=== PATIENT | female | born 1960 | race American Indian/Alaskan Native ===

== ENCOUNTER 2017-06-09 03:58 | Emergency (ER) | payer OTHER ==
[2017-06-09 05:13] LABS: Hematocrit 40.6 % (30.3-42.9); Hemoglobin 13.2 gm/dl (10.1-14.3); Mean Corpuscular HGB Conc 33 % (30-34); Mean Corpuscular Hemoglobin 30 pg (28-32); Mean Corpuscular Volume 92 fl (79-97); Platelet Count 301 K/mm3 (140-440); Red Blood Count 4.41 M/mm3 (3.65-5.03); Red Cell Distribution Width 15.9 % (13.2-15.2); White Blood Count 12.8 K/mm3 (4.5-11.0)
[2017-06-09 05:23] LABS: Anion Gap 21 mmol/L; BUN/Creatinine Ratio 18.75; Blood Urea Nitrogen 15 mg/dL (7-17); Calcium 9.4 mg/dL (8.4-10.2); Carbon Dioxide 21 mmol/L (22-30); Chloride 100.8 mmol/L (98-107); Glucose 110 mg/dL (65-100); Potassium 3.8 mmol/L (3.6-5.0); Sodium 139 mmol/L (137-145)
[2017-06-09] MEDS ORDERED: NITROSTAT SL ONE ×2 (05:32→06:42)
[2017-06-09] MEDS ORDERED: MORPHINE ONE (05:32)
[2017-06-09] MEDS ORDERED: ZOFRAN ONE (05:32)
[2017-06-09] MEDS ORDERED: ZOFRAN IV ONE ×2 (06:42→10:51)
[2017-06-09] MEDS ORDERED: MORPHINE IV ONE ×2 (06:42→10:51)
[2017-06-09 07:04] LABS: Anisocytosis 1+; Blastocytes % (Manual) 0 %; Diff Status Complete; Giant Platelets Rare
[2017-06-09] MEDS ORDERED: DILAUDID IV ONE (07:08)
[2017-06-09] MEDS ORDERED: APRESOLINE IV ONE (07:08)
[2017-06-09] MEDS ORDERED: NACL ONE (07:42)
[2017-06-09 07:53] LABS: Urine Drugs of Abuse Note Disclamer
[2017-06-09 08:32] LABS: Bilirubin,Urine NEG (Negative); Blood,Urine NEG (Negative); Ketones,Urine NEG (Negative); Leukocyte Esterase,Urine NEG (Negative); Mucus,Urine FEW /HPF; Nitrite,Urine NEG (Negative); Protein,Urine <15 mg/dL mg/dL (Negative); Urobilinogen,Urine < 2.0 mg/dL (<2.0); WBC,Urine < 1.0 /HPF (0.0-6.0)
--- NOTE | 2017-06-09 08:46 | Cat Scan Report ---
CT HEAD WITHOUT CONTRAST INDICATION: Headache. COMPARISON: None similar. FINDINGS: Noncontrast head CT demonstrates normal, symmetric ventricles and sulci without acute or recent infarct, hemorrhage, mass effect or midline shift. No abnormal extra-axial fluid collections. Posterior fossa structures and basilar cisterns are within normal limits. Symmetric eye globes. Clear paranasal sinuses and mastoid air cells. Intact calvarium. Normal overlying scalp soft tissues. Few radiopaque dental material incidentally noted. CONCLUSION: No acute intracranial CT abnormality, as described. Thank you for the opportunity to participate in this patient's care.
--- NOTE | 2017-06-09 08:53 | Cat Scan Report ---
CTA of the chest: Chest pain. Following IV contrast administration sections are obtained through the chest into the upper abdomen. Coronal and sagittal 2-D reformatted images with 3-D MIP image included. There is good opacification of the pulmonary arteries with no suspicious filling defects noted. The thoracic aorta is normal in size and contour. The opacified pulmonary changes show no filling defects. The central airways are patent. There is no hilar or mediastinal adenopathy appreciated. No pulmonary nodules, infiltrates, nor pleural findings. Sections carried into the upper abdomen demonstrates a partially visualized large right renal pelvis cyst and a 13 mm left renal cyst. Impressions: No evidence of pulmonary embolus or significant pulmonary finding.
--- NOTE | 2017-06-09 11:38 | Emergency Department Report ---
HPI - General Chief Complaint: Chest Pain Time Seen by Provider: 06/09/17 06:35 - HPI HPI: Chief complaint: Headache, chest pain 57-year-old -[place] female presents to the ED with headache, chest pain , neck pain. Patient denies any fever, chills, nausea or vomiting. Patient stated history of back surgery. She described the pain as sharp, 7 out of 10, without alleviating or exacerbating factors. Patient did not take any medication for her symptoms. ED Past Medical Hx - Past Medical History Previous Medical History?: Yes Hx Hypertension: Yes Additional medical history: Chronic back pain - Surgical History Additional Surgical History: L5/S1 FUSION. X 3. HYSTERECTOMY - Social History Smoking Status: Never Smoker - Medications Home Medications: Home Medications Medication Instructions Recorded Confirmed Last Taken Type Acetaminophen/Codeine [Tylenol #3] 1 tab PO Q6H PRN #15 tab 05/24/15 Unknown Rx Cyclobenzaprine [Flexeril 10 MG 10 mg PO TID PRN #15 tablet 05/24/15 Unknown Rx TAB] Ketorolac [Toradol] 10 mg PO Q6H PRN #20 tablet 06/09/17 Unknown Rx ED Review of Systems ROS: Stated complaint: CHEST PAIN Other details as noted in HPI Comment: All other systems reviewed and negative Cardiovascular: chest pain Neurological: headache Physical Exam - Physical Exam Vital Signs: Vital Signs 06/09/17 06/09/17 06/09/17 04:00 04:17 05:59 Temperature 97.8 F 98 F Pulse Rate 78 72 Respiratory 20 18 18 Rate Blood Pressure 195/103 161/110 Blood Pressure 170/103 [Right] O2 Sat by Pulse 100 100 Oximetry 06/09/17 06/09/17 06/09/17 07:18 07:36 08:34 Temperature 98.6 F Pulse Rate 94 H 84 Respiratory 14 16 Rate Blood Pressure 181/100 Blood Pressure 140/60 115/66 [Right] O2 Sat by Pulse 100 100 Oximetry 06/09/17 09:22 Temperature 98.1 F Pulse Rate 84 Respiratory 14 Rate Blood Pressure Blood Pressure 120/70 [Right] O2 Sat by Pulse 100 Oximetry Physical Exam: Gen. alert and oriented 3 in no distress Head atraumatic normocephalic Eyes PERR LA EOMI Chest regular rate and rhythm normal S1-S2 lungs clear bilaterally Abdomen soft nondistended Back no point tenderness paravertebral tenderness Neuro no focal deficit. Psych normal mood. ED Course Vital Signs 06/09/17 06/09/17 06/09/17 04:00 04:17 05:59 Temperature 97.8 F 98 F Pulse Rate 78 72 Respiratory 20 18 18 Rate Blood Pressure 195/103 161/110 Blood Pressure 170/103 [Right] O2 Sat by Pulse 100 100 Oximetry 06/09/17 06/09/17 06/09/17 07:18 07:36 08:34 Temperature 98.6 F Pulse Rate 94 H 84 Respiratory 14 16 Rate Blood Pressure 181/100 Blood Pressure 140/60 115/66 [Right] O2 Sat by Pulse 100 100 Oximetry 06/09/17 09:22 Temperature 98.1 F Pulse Rate 84 Respiratory 14 Rate Blood Pressure Blood Pressure 120/70 [Right] O2 Sat by Pulse 100 Oximetry ED Medical Decision Making - Lab Data Result diagrams: 06/09/17 04:49 06/09/17 04:49 Critical care attestation.: If time is entered above; I have spent that time in minutes in the direct care of this critically ill patient, excluding procedure time. ED Disposition Clinical Impression: Headache, Chest pain Disposition: DC-01 TO HOME OR SELFCARE Is pt being admited?: No Does the pt Need Aspirin: No Condition: Stable Instructions: Chest Pain (ED) Prescriptions: Ketorolac [Toradol] 10 mg PO Q6H PRN #20 tablet PRN Reason: Pain Referrals: RYAN DA SILVA MD [Primary Care Provider] - 3-5 Days
[2017-06-09] MEDS ORDERED: TORADOL ONE (11:51)
[2017-06-09] MEDS ORDERED: TORADOL IV ONE (11:52)
[2017-06-09 12:08] VITALS: BP 116/59
== END 2017-06-09 12:00 | disposition home or self-care (01) ==
LOC: ED 03:58
DX: R07.9 Chest pain, unspecified (principal); R51 Headache; I10 Essential (primary) hypertension; G89.29 Other chronic pain
CPT/HCPCS: 36415; 70450; 71275; 80048; 80307; 81001; 84484; 85007; 85025; 93005; 93010; 96374; 96375; 96376; 99285; J0360; J1170; J1885; J2270; J2405; Q9967

== ENCOUNTER 2017-11-04 17:04 | Outpatient (CLI) | payer OTHER ==
--- NOTE | 2017-11-04 21:47 | XRay Report ---
FINAL REPORT PROCEDURE: XR SACROILIAC JOINTS 3+V TECHNIQUE: Sacrum and coccyx radiographs, AP and lateral views. HISTORY: Sacroiliitis. COMPARISON: Lumbar spine radiographs dated same day and time FINDINGS: Fracture(s): None. Bone mineralization: Slight narrowing and sclerosis about the sacroiliac joints without significant erosive change. Posterior fusion in the lower lumbar spine with disc spacer at the lumbosacral junction. Pelvic phleboliths. IMPRESSION: Postsurgical lumbar spine changes. Degenerative changes of the sacroiliac joints. Also consider mild sacroiliitis. No erosions.
--- NOTE | 2017-11-04 21:48 | XRay Report ---
FINAL REPORT PROCEDURE: XR SPINE LUMBOSACRAL 4+V TECHNIQUE: Five view lumbar spine HISTORY: RADICULOPATHY OF LUMBAR REGION COMPARISON: No prior studies are available for comparison. FINDINGS: Slight levo scoliosis. Prior disc fusion at the L5-S1 levels and with intrapedicular screws and stabilization rods at the L4-5 levels. There is gross anatomic alignment. Mild degenerative changes evident. Multilevel facet arthropathy. No definite acute fracture seen at this time. Suspect neuroforaminal narrowing at the L3-4 L4-5 levels. Consider cross-sectional imaging. IMPRESSION: No acute fracture. Postsurgical changes evident. Suspect neuroforaminal narrowing at the L3-4 L4-[address] scan or MRI.
== END 2017-11-04 17:05 | disposition home or self-care (01) ==
LOC: XRAY 17:04
PROVIDERS: ATTEND Pain Medicine Interventional Pain Medicine
DX: M41.86 Other forms of scoliosis, lumbar region (principal); M43.27 Fusion of spine, lumbosacral region; M47.897 Other spondylosis, lumbosacral region; M12.88 Other specific arthropathies, not elsewhere classified, other specified site; I87.8 Other specified disorders of veins; M53.3 Sacrococcygeal disorders, not elsewhere classified; I10 Essential (primary) hypertension; Z98.890 Other specified postprocedural states
CPT/HCPCS: 72110; 72202

== ENCOUNTER 2018-07-16 14:16 | Outpatient (CLI) | payer OTHER ==
--- NOTE | 2018-07-16 16:04 | XRay Report ---
FINAL REPORT EXAM: XR SPINE LUMBOSACRAL 2-3V HISTORY: Postlaminectomy syndrome TECHNIQUE: AP, lateral and coned-down views of lumbar spine. PRIORS: 04 November 2017. FINDINGS: Interval postsurgical changes, including posterior fixation rods, pedicular screws and transversely oriented interspace devices noted in the L3-4 level, as well as bone graft material in the paraspinal regions, new from comparison. Interspace fusion device in L5-S1 level, stable. Apparent bony ankylosis or fusion in the L4-5 posterior elements. Remainder of lumbar disc spaces maintained. Mild levoconvex curvature of lumbar spine mildly increased. No loss of height or gross malalignment of lumbar vertebral bodies. No obvious osseous destruction. Paraspinal soft tissues grossly unremarkable. Vertically oriented surgical skin carley noted over the lumbar region. IMPRESSION: 1. Postsurgical changes, new in the interval. 2. No acute osseous abnormality.
== END 2018-07-16 14:17 | disposition home or self-care (01) ==
LOC: XRAY 14:16
PROVIDERS: ATTEND Orthopaedic Surgery Orthopaedic Surgery of the Spine
DX: M96.1 Postlaminectomy syndrome, not elsewhere classified (principal); I10 Essential (primary) hypertension; Z90.710 Acquired absence of both cervix and uterus; Z98.890 Other specified postprocedural states
CPT/HCPCS: 72100

== ENCOUNTER 2018-08-31 15:03 | Emergency (ER) | payer OTHER ==
[2018-08-31 15:26] VITALS: BP 163/104
[2018-08-31] MEDS ORDERED: NORCO 5/325 PO ONE (17:21)
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
[2018-08-31] MEDS ORDERED: FLEXERIL PO ONE (19:12)
== END 2018-08-31 18:10 | disposition home or self-care (01) ==
LOC: ED 15:03
DX: S39.012A Strain of muscle, fascia and tendon of lower back, initial encounter (principal); I10 Essential (primary) hypertension; Z90.710 Acquired absence of both cervix and uterus; Y04.0XXA Assault by unarmed brawl or fight, initial encounter; Y93.89 Activity, other specified; Y92.89 Other specified places as the place of occurrence of the external cause; Y99.8 Other external cause status
CPT/HCPCS: 99282